=== PATIENT | female | born 1990 | race African-American/Black ===

== ENCOUNTER → 2017-03-11 | Outpatient (CLI) | payer OTHER ==
[~2017-03-11] MED LIST: COLA100C3 PO; IBUP80TA PO; PERCOCET PO
--- NOTE | 2017-03-11 16:49 | REP ---
Limited abdominal ultrasound for hernia: The patient reportedly had umbilical hernia repair in 2012. The patient gave in 2014. By ultrasound today there is diastases of the rectus abdominis muscles up to 5.3 cm. Bowel is seen between the rectus abdominis muscles, however there is no anterior abdominal wall protrusion at the site of diastases. If there is anterior abdominal wall mesh is poorly identified by ultrasound. Impression: Diastases of the rectus abdominis muscles with bowel between the muscles but no anterior abdominal wall protrusion. Signed by Terry Muñiz MD 03/11/2017 04:41 P
== END ==
LOC: M RAD 08:23
PROVIDERS: ATTEND Family Medicine
DX: K42.9 Umbilical hernia without obstruction or gangrene (principal)